=== PATIENT | male | born 1950 | race African-American/Black ===

== ENCOUNTER 2024-04-18 11:22 | Inpatient (IN) | payer OTHER, MEDICARE ==
[~2024-04-18] VITALS: Ht 180.3 cm; Wt 81.2 kg
[2024-04-18 12:06] LABS: EOSINOPHILS % 2.2 % (0.0-5.0); HEMATOCRIT. 42.7 % (42.0-52.0); HEMOGLOBIN. 14.5 g/dL (14.0-18.0); LYMPHOCYTES % 47.4 % (20.0-50.0); MEAN CORPUSCULAR HEMOGLOBIN 30.6 pg (28.0-32.0); MEAN CORPUSCULAR HGB CONC 33.8 g/dL (31.0-37.0); MEAN CORPUSCULAR VOLUME 90.4 fL (80.0-94.0); MONOCYTES % 7.4 % (2.0-8.0); RED BLOOD CELL COUNT 4.73 mill/uL (4.7-6.1); RED CELL DISTRIBUTION WIDTH 14.6 % (11.6-14.6); WHITE BLOOD COUNT 6.3 x1000/uL (4.5-11.0)
[2024-04-18] MEDS: MORPHINE SULFATE 4 MG/ML INJ (FOR IV/IM USE) IV STA (12:08)
[2024-04-18 12:12] LABS: CHLORIDE 106 mEq/L (98-107); POTASSIUM 3.6 mEq/L (3.5-5.1); SODIUM 143 mEq/L (136-145)
[2024-04-18 12:13] LABS: CALCIUM 10.5 mg/dL (8.7-10.4); CARBON DIOXIDE 27 mEq/L (21-32)
[2024-04-18 12:17] LABS: ADD RBC MORPHOLOGY YES; DIFFERENTIAL COMMENT 1
[2024-04-18 12:18] LABS: CREATININE 1.2 mg/dL (0.6-1.3); GLUCOSE 111 mg/dL (70-105); UREA NITROGEN BLOOD 18 mg/dL (9-23)
[2024-04-18 14:06] LABS: MEAN PLATELET VOLUME 8.9 fl (7.4-10.4); PLATELET 172 x1000/uL (130-400); PLATELET ESTIMATE NORMAL
[2024-04-18 14:30] VITALS: BP 120/82; PULSE 67; RESP 14; TEMP 36.4
[2024-04-18] MEDS ORDERED: AMLO10TA80 MT (16:59)
[2024-04-18] MEDS ORDERED: LOSA100T33 MT (16:59)
[2024-04-18] MEDS ORDERED: GABA300S4 PO (16:59)
[2024-04-18] MEDS ORDERED: HYDR25TA MT (16:59)
[2024-04-18] MEDS ORDERED: HYDROCODONE/ACETAMINOPHEN 5/325MG TABLET PO PRN (17:00)
[2024-04-18] MEDS ORDERED: ACETAMINOPHEN 325MG TABLET PO PRN (17:00)
[2024-04-18] MEDS ORDERED: CLONIDINE 0.1MG TABLET PO PRN (17:00)
[2024-04-18] MEDS ORDERED: IPRATROPIUM/ALBUTEROL 0.5-3(2.5)MG/3ML NEB HHN PRN (17:00)
[2024-04-18] MEDS ORDERED: ONDANSETRON HCL 4MG/2ML INJ IV PRN (17:00)
[2024-04-18] MEDS ORDERED: NALOXONE HCL 0.4MG/ML VIAL IV PRN (17:15)
[2024-04-18 17:33] VITALS: BP 120/82; PULSE 67; RESP 14; TEMP 36.4; O2SAT 97
[2024-04-18 20:00] VITALS: BP 111/69; PULSE 67; RESP 19; TEMP 36.5; O2SAT 97
[2024-04-18 20:00] LABS: HEPATITIS B SURFACE ANTIGEN NEGATIVE (Negative)
[2024-04-18 20:22] LABS: HEPATITIS C AB NON REACTIVE (Neg) (Negative)
[2024-04-18] MEDS: MORPHINE SULFATE 2 MG/ML INJ (NOT FOR IM USE) IV PRN (21:13)
[2024-04-19] VITALS: BP 110/63; PULSE 20; RESP 20; TEMP 36.7; O2SAT 98
[2024-04-19 04:00] VITALS: BP 104/68; PULSE 63; RESP 19; TEMP 36.6; O2SAT 100
[2024-04-19 08:00] VITALS: BP 126/74; PULSE 65; RESP 20; TEMP 36.6; O2SAT 96
[2024-04-19] MEDS: INFLUENZA VACCINE 05/PF 0.5 ML SYRINGE IM ONE (08:50)
[2024-04-19] MEDS: HYDROCODONE/ACETAMINOPHEN 10/325MG TABLET PO PRN (10:07)
[2024-04-19 12:00] VITALS: BP 115/70; PULSE 68; RESP 18; TEMP 36.3; O2SAT 98
[2024-04-19] MEDS: LOSARTAN 100 MG TABLET PO SCH (12:15)
[2024-04-19] MEDS: AMLODIPINE 10MG TABLET PO SCH (12:15)
[2024-04-19] MEDS: HYDROCHLOROTHIAZIDE 25MG TABLET PO SCH (12:15)
[2024-04-19 16:00] VITALS: BP 118/70; PULSE 70; RESP 20; TEMP 36.3; O2SAT 100
[2024-04-19] MEDS: DEXAMETHASONE 10 MG/ML VIAL IV SCH (19:06)
[2024-04-19 20:00] VITALS: BP 127/68; PULSE 69; RESP 17; TEMP 36.7; O2SAT 99
[2024-04-19] MEDS: GABAPENTIN SOLN 300MG/6ML UDC PO SCH (20:46)
[2024-04-20] VITALS: BP 107/69; PULSE 61; RESP 18; TEMP 36.5; O2SAT 98
[2024-04-20 04:00] VITALS: BP 111/73; PULSE 71; RESP 18; TEMP 36.4; O2SAT 97
[2024-04-20 06:36] LABS: BASOPHILS % 0.1 % (0.0-2.0); HEMOGLOBIN. 12.7 g/dL (14.0-18.0); LYMPHOCYTES % 11.3 % (20.0-50.0); MEAN CORPUSCULAR HEMOGLOBIN 30.3 pg (28.0-32.0); MEAN CORPUSCULAR HGB CONC 34.3 g/dL (31.0-37.0); MEAN CORPUSCULAR VOLUME 88.4 fL (80.0-94.0); MONOCYTES % 0.8 % (2.0-8.0); NEUTROPHILS % 87.8 % (40.0-76.0); PLATELET 165 x1000/uL (130-400); RED BLOOD CELL COUNT 4.18 mill/uL (4.7-6.1); RED CELL DISTRIBUTION WIDTH 14.2 % (11.6-14.6); WHITE BLOOD COUNT 7.1 x1000/uL (4.5-11.0)
[2024-04-20 06:44] LABS: CHLORIDE 106 mEq/L (98-107); POTASSIUM 4.2 mEq/L (3.5-5.1); SODIUM 141 mEq/L (136-145)
[2024-04-20 06:45] LABS: CARBON DIOXIDE 27 mEq/L (21-32)
[2024-04-20 06:46] LABS: CALCIUM 9.8 mg/dL (8.7-10.4)
[2024-04-20 06:50] LABS: CREATININE 1.1 mg/dL (0.6-1.3); GLUCOSE 143 mg/dL (70-105); UREA NITROGEN BLOOD 18 mg/dL (9-23)
[2024-04-20 06:52] LABS: ALANINE AMINOTRANSFERASE 25 IU/L (10-49); ASPARTATE AMINOTRANSFERASE 20 IU/L (<34)
[2024-04-20 06:53] LABS: BILIRUBIN TOTAL 0.6 mg/dL (0.1-1.0)
[2024-04-20 08:00] VITALS: BP 119/76; PULSE 66; RESP 18; TEMP 36.6; O2SAT 99
[2024-04-20 12:00] VITALS: BP 111/66; PULSE 75; RESP 20; TEMP 36.7; O2SAT 100
[2024-04-20 15:42] VITALS: BP 126/72; PULSE 84; RESP 20; TEMP 36.9; O2SAT 100
[2024-04-20] MEDS: DEXAMETHASONE 4MG/ML 1ML VIAL IV SCH (18:20)
[2024-04-20] MEDS: ACETAMINOPHEN 325MG TABLET PO PRN (18:28)
[2024-04-20 20:00] VITALS: BP 109/69; PULSE 77; RESP 18; TEMP 37; O2SAT 98
[2024-04-21] VITALS: BP 109/55; PULSE 70; RESP 19; TEMP 36.5; O2SAT 97
[2024-04-21 04:00] VITALS: BP 113/76; PULSE 67; RESP 18; TEMP 36.7; O2SAT 97
[2024-04-21 06:36] LABS: CHLORIDE 105 mEq/L (98-107); POTASSIUM 3.8 mEq/L (3.5-5.1); SODIUM 142 mEq/L (136-145)
[2024-04-21 06:37] LABS: CARBON DIOXIDE 26 mEq/L (21-32)
[2024-04-21 06:42] LABS: CREATININE 1.2 mg/dL (0.6-1.3)
[2024-04-21 06:43] LABS: GLUCOSE 128 mg/dL (70-105); UREA NITROGEN BLOOD 19 mg/dL (9-23)
[2024-04-21] MEDS: DOCUSATE SODIUM 100MG CAPSULE PO PRN (07:13)
[2024-04-21 07:34] LABS: HEMATOCRIT. 37.9 % (42.0-52.0); HEMOGLOBIN. 12.6 g/dL (14.0-18.0); MEAN CORPUSCULAR HEMOGLOBIN 30.4 pg (28.0-32.0); MEAN CORPUSCULAR HGB CONC 33.3 g/dL (31.0-37.0); MEAN CORPUSCULAR VOLUME 91.2 fL (80.0-94.0); MEAN PLATELET VOLUME 9.3 fl (7.4-10.4); PLATELET 174 x1000/uL (130-400); RED BLOOD CELL COUNT 4.16 mill/uL (4.7-6.1); WHITE BLOOD COUNT 15.5 x1000/uL (4.5-11.0)
[2024-04-21 07:57] LABS: DIFFERENTIAL COMMENT 1
[2024-04-21 08:00] VITALS: BP_SYST 114; BP_DIAS 6; BP_DIAS 66; PULSE 67; RESP 18; TEMP 36.6; O2SAT 99
[2024-04-21 12:00] VITALS: BP 119/69; PULSE 78; RESP 20; TEMP 36.7; O2SAT 100
[2024-04-21] MEDS ORDERED: IBUP-2029 MT (13:44)
[2024-04-21 14:12] VITALS: BP 119/69; PULSE 78; TEMP 98; O2SAT 100
[2024-04-21] MEDS ORDERED: METH4TAB95 MT (14:21)
[2024-04-21] MEDS ORDERED: PROT20 MT (14:21)
[2024-04-21 16:00] VITALS: BP 112/69; PULSE 70; RESP 20; TEMP 36.7; O2SAT 100
[2024-04-21 17:17] LABS: PLATELET ESTIMATE NORMAL
== END 2024-04-21 17:48 | disposition home health service (06) | DRG 552 ==
LOC: ER 11:36 → 8EST 13:37
PROVIDERS: ADMIT Internal Medicine; ATTEND Internal Medicine
DX: M51.362 Other intervertebral disc degeneration, lumbar region with discogenic back pain and lower extremity pain (principal); I10 Essential (primary) hypertension; E03.9 Hypothyroidism, unspecified; E78.5 Hyperlipidemia, unspecified; M51.17 Intervertebral disc disorders with radiculopathy, lumbosacral region; M48.07 Spinal stenosis, lumbosacral region; E78.00 Pure hypercholesterolemia, unspecified; Q76.49 Other congenital malformations of spine, not associated with scoliosis; Z79.899 Other long term (current) drug therapy
CPT/HCPCS: 36415; 72148; 80048; 80053; 83036; 85025; 86705; 87340; 90686; 97162; 99285; J1100; J2270